=== PATIENT | male | born 1980 | race Two or more races ===

== ENCOUNTER 2024-08-14 21:41 | Emergency (ER) | payer MEDICAID, SELFPAY ==
[2024-08-14 21:42] VITALS: BMI 42.7
[2024-08-14 21:58] VITALS: BP 133/78; PULSE 112; RESP 18; TEMP 36.6; O2SAT 95
--- NOTE | 2024-08-14 22:18 | XR_ITS ---
Examination: Toes, right foot first digit 3 views Technique: Toes AP oblique lateral 3 views, right foot first digit Date and time of exam: August 14, 2024 1030 hrs. Indications: Injury to the foot today first digit pain Findings: No acute fracture No dislocation No foreign body Impression: No acute fracture
--- NOTE | 2024-08-14 22:19 | EDNOTE_ITS ---
Lower Extremity Injury RME/HPI General Chief Complaint: Ankle/Foot Injury Stated Complaint: R TOENAIL PAIN Time Seen by Provider: 08/14/24 21:50 Source: patient Arrival date/time: 08/14/24 21:41 44-year-old male presents emergency department complaining of stubbed right toe that occurred today. Mode of arrival: ambulatory Limitations: no limitations Related Data Previous Rx's ?Medication ?Instructions ?Recorded cephalexin 500 mg capsule 500 mg PO BID 7 days #14 caps 08/14/24 ibuprofen 600 mg tablet 600 mg PO Q8H PRN pain #20 tabs 08/14/24 Allergies Allergy/AdvReac Type Severity Reaction Status Date / Time No Known Allergies Allergy Verified 08/14/24 21:44 Review of Systems Review of Systems Systems Reviewed: All systems reviewed, normal except as documented Constitutional Constitutional: Reports system reviewed and no additional complaints, except as documented, Denies body ache(s), Denies chills and Denies fever(s) Eyes Eyes: Reports system reviewed and no additional complaints, except as documented and Denies change in vision ENT Ears, Nose, Mouth, and Throat: Reports system reviewed and no additional complaints, except as documented, Denies disequilibrium, Denies dizziness, Denies sore throat and Denies vertigo Cardiovascular Cardiovascular: Reports system reviewed and no additional complaints, except as documented, Denies chest pain and Denies dyspnea Respiratory Respiratory: Reports system reviewed and no additional complaints, except as documented, Denies chest congestion, Denies cough and Denies dyspnea Gastrointestinal Gastrointestinal: Reports system reviewed and no additional complaints, except as documented, Denies abdominal pain, Denies nausea and Denies vomiting Musculoskeletal Musculoskeletal: Reports system reviewed and no additional complaints, except as documented, Denies abnormal gait, Denies arthralgias and Reports other (Toe pain) Integumentary/Breasts Skin/Breast: Reports system reviewed and no additional complaints, except as documented, Denies erythema, Denies rash and Denies wounds Neurologic Neurologic: Reports system reviewed and no additional complaints, except as documented, Denies abnormal gait, Denies disequilibrium, Denies dizziness and Denies vertigo Past Medical History Past Medical History NEUROLOGIC: Positive Neurological Disorders and Migraine; Negative Seizures CARDIAC: Positive Hypercholesterolemia and Hypertension; Negative Cardiac Disorders, Myocardial Infarction or Congestive Heart Failure RESPIRATORY: Negative Chronic Obstructive Pulmonary Disease (COPD) or Asthma GASTROINTESTINAL: Positive Gastrointestinal Disorders, Gall Bladder Disease, Hemorrhoids and Obesity; Negative Gastrointestinal Bleed or Gastroesophageal Reflux Disease GENITOURINARY: Positive Genitourinary Disorders and Benign Prostatic Hyperplasia; Negative Renal Disease MUSCULOSKELETAL: Positive Musculoskeletal Disorders, Arthritis and Degenerative Disk Disease ENDOCRINE: Negative Endocrine Disorders, Diabetes Mellitus Type 1, Diabetes Mellitus Type 2, Hyperthyroidism or Hypothyroidism HEMATOLOGIC: Negative Blood Disorders or Sickle Cell Disease PSYCHO/SOCIAL: Positive Depression, Anxiety and Behavior Problems OTHER HISTORY: Negative Blood Transfusions, Blood Transfusion Reaction, Anesthesia Reactions, Chicken Pox, Measles, Mumps or Cancer Family History FAMILY HISTORY: Positive Family Cardiac Disorders Surgical History SURGICAL: Positive Nephrectomy (LEFT) Social History SMOKING STATUS: Never smoker SUBSTANCE USE: does not use ED Exam General Limitations: Present no limitations General appearance: Present alert and in no apparent distress Head Head exam: Present atraumatic Eye Eye exam: Present normal appearance, PERRL and EOMI ENT ENT exam: Present normal exam, normal oropharynx and mucous membranes moist Neck Neck exam: Present normal inspection, full ROM and trachea midline Chest Chest inspection: Present normal inspection and symmetric chest wall rise Respiratory Respiratory exam: Present normal lung sounds bilaterally Cardiovascular Cardiovascular exam: Present regular rate, normal rhythm and normal heart sounds Abdominal Exam Abdominal exam: Present soft and normal bowel sounds Extremities Exam Extremities exam: Present normal inspection and full ROM Expanded Lower Extremity Exam Top foot image: 2 1. Scant bleeding from under the toenail no avulsion of toenail Neurovascular/Tendon exam: Present normal capillary refill Gait: observed and limited by pain Back Exam Back exam: Present normal inspection and full ROM Neurological Exam Neurological exam: Present alert, oriented X3 and CN II-XII intact Psychiatric Psychiatric exam: Present normal affect and normal mood Skin Skin exam: Present warm, dry, intact and normal color Course Quality Measures none Orders Category Date Time Status XR toe RT min 2V Stat Exams 08/14/24 22:18 Completed HYDROcodone*/APAP 5/325 [[place] 5/325] Med 08/14/24 22:18 Discontinued 1 tab PO X1 ONE Vital Signs Vital signs: Vital Signs Temperature 97.8 F 08/14/24 21:58 Pulse Rate 112 H 08/14/24 21:58 Respiratory Rate 18 08/14/24 21:58 Blood Pressure 133/78 H 08/14/24 21:58 Pulse Oximetry (%) 95 08/14/24 21:58 Oxygen Delivery Method Room Air 08/14/24 21:58 95% room air within normal limits Extremity Injury, Lower MDM Narrative MDM Narrative:: 44-year-old male presents emergency department complaining of stubbed right toe that occurred today. X-ray of toe was unremarkable for any acute fracture. Right toenail does not appear to be avulsed but there is some scant amount of bleeding under the toenail from injury. Dressing applied and patient instructed to follow-up with primary care provider and request referral to graphotype operator if symptoms persist. Instructed to return to emergency department for any worsening symptoms or as needed. Patient data External records reviewed:: [facility] previous records Clinical information provided by:: patient Social determinants that could affect healthcare access:: none Patient has the following chronic illnesses:: See chart How is presenting disease/condition affected by chronic disease/condition?: u neffected by Evaluation data The following diagnostics were reviewed and interpreted by me:: radiology exam(s) Lab and/or radiology exams considered but not ordered:: Ordered Interpretation Summary: Interpreted by me Medications / Prescriptions Medications or Prescriptions considered but not ordered:: Ordered Medication administrations:: Medication Administration History Discontinued Medications Hydrocodone Bitart/Acetaminophen (Hydrocodone/Apap 5/325 Tablet) 1 tab PO X1 ONE Stop: 08/14/24 22:19 Last Admin: 08/14/24 22:22 Dose: 1 tab Documented By: RAYRAY Given Consultations Consultation(s) initiated? (list below): No Diagnosis Extremity Injury, Lower Differential Diagnosis: fracture of toe and other (Nail avulsion) Most likely diagnosis given after review of the tests above:: Contusion of great toe with damage to nail Admission Indicated Admission indicated?: not indicated Admission Request Was there a request for admission?: No Disposition Plan Disposition Plan: Discharge Discharge Attestation Discharge Attestation: The patient and all family members were given an opportunity to ask questions and understood the discharge instructions. Discharge instructions specifically effects, indications for sooner follow up or return to the emergency department, and the expected course of current diagnosis. Patient condition: Stable Discharge Plan Plan Patient Disposition: HOME (Self Care) Disposition Comment: Stable Prescriptions/Referrals Prescriptions/Med Rec: New cephalexin 500 mg capsule 500 mg PO BID 7 Days Qty: 14 0RF ibuprofen 600 mg tablet 600 mg PO Q8H PRN (Reason: pain) Qty: 20 0RF Problem List Clinical Impression: Contusion of great toe with damage to nail Patient/Caregiver Discharge Instructions Discharge Activity: activity as tolerated Education Materials: Bruises (Contusions), Understanding [id number] Nails Additional Instructions: Keep right great toe clean and dry with dressing on for the first 24 hours. Follow-up with primary care provider and request referral to graphotype operator if symptoms persist. Return to emergency department for any worsening symptoms or as needed. Print Language: Singaporean Stand Alone Forms: [employer] Award Info., Work/School Release, Patient Portal Info Letter PA/MANUAL LATHE MACHINIST Supervising Physician PA/MANUAL LATHE MACHINIST Supervising Physician: Dr. Grace
[2024-08-14] MEDS: HYDROcodone/APAP 5/325 TABLET 1 TAB PO (22:22)
== END 2024-08-15 | disposition home or self-care (01) ==
LOC: SERX 08-15 00:50
PROVIDERS: Emergency Provider Emergency Medicine; PCP Physician Assistant
DX: S90.21 Contusion of great toe with damage to nail (principal); W22.8XXA Striking against or struck by other objects, initial encounter
CPT/HCPCS: 73660; 99283; A9270

== ENCOUNTER 2025-02-15 17:58 | Emergency (ER) | payer MEDICAID, SELFPAY ==
[2025-02-15 17:59] VITALS: BMI 41.8
[2025-02-15 18:55] VITALS: BP 154/91; PULSE 95; RESP 18; TEMP 36.6; O2SAT 98
--- NOTE | 2025-02-15 19:08 | XR_ITS ---
Examination: Venous duplex lower extremity sonogram, bilateral. Date and time of exam: February 15, 2025 1937 hours INDICATIONS: Bilateral leg swelling and pain 2 weeks Technique: Multiple sonographic images of the deep venous system have been obtained. B-mode/2-D grayscale imaging of vascular structures and Doppler spectral analysis (waveforms) and color performed Both legs are examined. Findings: Deep venous systems do not demonstrate abnormal echogenicity. All visualized deep veins exhibit compressibility. All visualized deep veins exhibit augmentation. Impression: Negative for deep vein thrombosis
[2025-02-15] MEDS: HYDROcodone/APAP 5/325 TABLET 1 TAB PO (19:14)
[2025-02-15] MEDS: GABAPENTIN 300 MG CAPSULE PO (19:14)
--- NOTE | 2025-02-15 19:16 | EDNOTE_ITS ---
<Statement entered by Esperanza Tran MD - 02/16/25 18:29> As co-signing physician, I was present and available for consult prn. I concur with the plan and care as documented by the midlevel provider. ED Back Injury Pain RME/HPI General Chief Complaint: Back Pain/Injury Stated Complaint: WORSENING PAIN LOWER BACK DOWN TO FEET Time Seen by Provider: 02/15/25 19:07 Arrival date/time: 02/15/25 17:58 44M with no significant PMH presents to ED with several months of low back pain that radiates down to feet. There is intermittent numbness/burning sensation in legs. Patient has had XR/CT done. PCP only gave NSAIDs and sent patient to chiropractor. Limitations: no limitations Related Data Previous Rx's ?Medication ?Instructions ?Recorded ibuprofen 600 mg tablet 600 mg PO Q8H PRN pain #20 t abs 08/14/24 Allergies Allergy/AdvReac Type Severity Reaction Status Date / Time No Known Allergies Allergy Verified 02/15/25 18:02 Review of Systems Review of Systems Systems Reviewed: All systems reviewed, normal except as documented Constitutional Constitutional: Reports system reviewed and no additional complaints, except as documented, Denies fever(s) and Denies headache(s) ENT Ears, Nose, Mouth, and Throat: Denies disequilibrium and Denies headache(s) Cardiovascular Cardiovascular: Reports system reviewed and no additional complaints, except as documented, Denies chest pain and Denies dyspnea Respiratory Respiratory: Reports system reviewed and no additional complaints, except as documented, Denies cough and Denies dyspnea Gastrointestinal Gastrointestinal: Reports system reviewed and no additional complaints, except as documented, Denies abdominal pain, Denies nausea and Denies vomiting Musculoskeletal Musculoskeletal: Reports as per HPI, Reports back pain and Reports radiating pain into limb Neurologic Neurologic: Reports system reviewed and no additional complaints, except as documented, Denies confusion, Denies disequilibrium and Denies headache(s) Psychiatric Psychiatric: Denies confusion Past Medical History Past Medical History NEUROLOGIC: Positive Neurological Disorders and Migraine; Negative Seizures CARDIAC: Positive Hypercholesterolemia and Hypertension; Negative Cardiac Disorders, Myocardial Infarction or Congestive Heart Failure RESPIRATORY: Negative Chronic Obstructive Pulmonary Disease (COPD) or Asthma GASTROINTESTINAL: Positive Gastrointestinal Disorders, Gall Bladder Disease, Hemorrhoids and Obesity; Negative Gastrointestinal Bleed or Gastroesophageal Reflux Disease GENITOURINARY: Positive Genitourinary Disorders and Benign Prostatic Hyperplasia; Negative Renal Disease MUSCULOSKELETAL: Positive Musculoskeletal Disorders, Arthritis and Degenerative Disk Disease ENDOCRINE: Negative Endocrine Disorders, Diabetes Mellitus Type 1, Diabetes Mellitus Type 2, Hyperthyroidism or Hypothyroidism HEMATOLOGIC: Negative Blood Disorders or Sickle Cell Disease PSYCHO/SOCIAL: Positive Depression, Anxiety and Behavior Problems OTHER HISTORY: Negative Blood Transfusions, Blood Transfusion Reaction, Anesthesia Reactions, Chicken Pox, Measles, Mumps or Cancer Family History FAMILY HISTORY: Positive Family Cardiac Disorders Surgical History SURGICAL: Positive Nephrectomy (LEFT) Social History SMOKING STATUS: Current some day smoker SUBSTANCE USE: does not use ED Exam General Limitations: Present no limitations General appearance: Present alert and in no apparent distress Head Head exam: Present atraumatic Eye Eye exam: Present normal appearance, PERRL and EOMI ENT ENT exam: Present normal exam, normal oropharynx and mucous membranes moist Neck Neck exam: Present normal inspection, full ROM and trachea midline Chest Chest inspection: Present normal inspection and symmetric chest wall rise Respiratory Respiratory exam: Present normal lung sounds bilaterally Cardiovascular Cardiovascular exam: Present regular rate, normal rhythm and normal heart sounds Abdominal Exam Abdominal exam: Present soft and normal bowel sounds Extremities Exam Extremities exam: Present normal inspection and full ROM Back Exam Back exam: Present normal inspection and full ROM Neurological Exam Neurological exam: Present alert, oriented X3 and CN II-XII intact Psychiatric Psychiatric exam: Present normal affect and normal mood Skin Skin exam: Present warm, dry, intact and normal color Course Quality Measures none Orders Category Date Time Status US venous doppler LE BI Stat Exams 02/15/25 19:08 Completed Gabapentin [Neurontin] Med 02/15/25 19:08 Discontinued 300 mg PO X1 ONE HYDROcodone*/APAP 5/325 [[place] 5/325] Med 02/15/25 19:08 Discontinued 1 tab PO X1 ONE Vital Signs Vital signs: Vital Signs Temperature 98 F 02/15/25 18:55 Pulse Rate 95 02/15/25 18:55 Respiratory Rate 18 02/15/25 18:55 Blood Pressure 154/91 H 02/15/25 18:55 Pulse Oximetry (%) 98 02/15/25 18:55 Oxygen Delivery Method Room Air 02/15/25 18:55 O2 at 98% on RA and WNLs Back Pain / Injury MDM Narrative MDM Narrative:: 44M with no significant PMH presents to ED with several months of low back pain that radiates down to feet. There is intermittent numbness/burning sensation in legs. Patient has had XR/CT done. PCP only gave NSAIDs and sent patient to chiropractor. Physical exam reveals no obvious leg swelling. Gait normal. Patient is afebrile, calm, and alert. US neg. Likely sciatica. Patient data External records reviewed:: [facility] previous records Clinical information provided by:: patient Social determinants that could affect healthcare access:: none Patient has the following chronic illnesses:: none How is presenting disease/condition affected by chronic disease/condition?: no chronic disease Evaluation data The following diagnostics were reviewed and interpreted by me:: radiology exam(s) Lab and/or radiology exams considered but not ordered:: ordered Interpretation Summary: above Medications / Prescriptions Medications or Prescriptions considered but not ordered:: ordered Medication administrations:: Medication Administration History Discontinued Medications Hydrocodone Bitart/Acetaminophen (Hydrocodone/Apap 5/325 Tablet) 1 tab PO X1 ONE Stop: 02/15/25 19:09 Last Admin: 02/15/25 19:14 Dose: 1 tab Documented By: THIAGO Gabapentin (Gabapentin 300 Mg Capsule) 300 mg PO X1 ONE Stop: 02/15/25 19:09 Last Admin: 02/15/25 19:14 Dose: 300 mg Documented By: THIAGO above Consultations Consultation(s) initiated? (list below): No Diagnosis Differential diagnosis back pain/injury: lumbar radiculopathy, sciatica, strain of lumbar region, renal colic, pyelonephritis, thoracic back pain, AAA and discitis Most likely diagnosis given after review of the tests above:: sciatica Admission Indicated Admission indicated?: not indicated Admission Request Was there a request for admission?: No Disposition Plan Disposition Plan: Discharge Discharge Attestation Discharge Attestation: The patient and all family members were given an opportunity to ask questions and understood the discharge instructions. Discharge instructions specifically effects, indications for sooner follow up or return to the emergency department, and the expected course of current diagnosis. Patient condition: Stable Discharge Plan Plan Patient Disposition: HOME (Self Care) Discharge Disposition comment: Stable Prescriptions/Referrals Prescriptions/Med Rec: No Action ibuprofen 600 mg tablet 600 mg PO Q8H PRN (Reason: pain) Qty: 20 0RF Referrals: No Primary/Family,Physician [Primary Care Provider] - In 1 week Problem List Clinical Impression: Sciatica Patient/Caregiver Discharge Instructions Education Materials: ED Sciatica Additional Instructions: Please follow-up with PCP within 24-48 hours and return immediately if symptoms worsen. If problem persists, recommend outpatient PT and/or MRI follow-up. In the meantime, rest, use ice/heat, and/or compression. Print Language: Japanese Stand Alone Forms: Patient Portal Info Letter PA/MEDIA SALES REPRESENTATIVE Supervising Physician PA/MEDIA SALES REPRESENTATIVE Supervising Physician: Dr. Tran
== END 2025-02-15 21:29 | disposition home or self-care (01) ==
PROVIDERS: Emergency Provider Emergency Medicine
DX: M54.40 Lumbago with sciatica, unspecified side (principal)
CPT/HCPCS: 93970; 99284; A9270

== ENCOUNTER 2025-02-21 17:36 | Emergency (ER) | payer MEDICAID, SELFPAY ==
[2025-02-21 17:38] VITALS: BMI 40.6
[2025-02-21 17:49] VITALS: BP 145/104; PULSE 95; RESP 16; TEMP 37.4; O2SAT 97
--- NOTE | 2025-02-21 18:49 | PD.EDEYE ---
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 Patient just wants [place] and states this feels the same as previous flares. 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 He is going to see the eye doctor very soon and doesn't want any diagnostics. Patient denies vision changes and has stated he's been worked up for glaucoma and states he doesn't have that. Limitations: no limitations Related Data Previous Rx's ?Medication ?Instructions ?Recorded ibuprofen 600 mg tablet 600 mg PO Q8H PRN pain #20 tabs 08/14/24 hydrocodone 5 mg-acetaminophen 325 1 tab PO BID PRN pain #10 tabs 02/21/25 mg tablet Allergies Allergy/AdvReac Type Severity Reaction Status Date / Time No Known Allergies Allergy Verified 02/21/25 17:40 Review of Systems Review of Systems Systems Reviewed: All systems reviewed, normal except as documented Constitutional Constitutional: Reports system reviewed and no additional complaints, except as documented, Denies fever(s) and Denies headache(s) Eyes Eyes: Reports as per HPI and Reports eye pain ENT Ears, Nose, Mouth, and Throat: Denies disequilibrium and Denies headache(s) Cardiovascular Cardiovascular: Reports system reviewed and no additional complaints, except as documented, Denies chest pain and Denies dyspnea Respiratory Respiratory: Reports system reviewed and no additional complaints, except as documented, Denies cough and Denies dyspnea Gastrointestinal Gastrointestinal: Reports system reviewed and no additional complaints, except as documented, Denies abdominal pain, Denies nausea and Denies vomiting Neurologic Neurologic: Reports system reviewed and no additional complaints, except as documented, Denies confusion, Denies disequilibrium and Denies headache(s) Psychiatric Psychiatric: Denies confusion Past Medical History Past Medical History NEUROLOGIC: Positive Neurological Disorders and Migraine; Negative Seizures CARDIAC: Positive Hypercholesterolemia and Hypertension; Negative Cardiac Disorders, Myocardial Infarction or Congestive Heart Failure RESPIRATORY: Negative Chronic Obstructive Pulmonary Disease (COPD) or Asthma GASTROINTESTINAL: Positive Gastrointestinal Disorders, Gall Bladder Disease, Hemorrhoids and Obesity; Negative Gastrointestinal Bleed or Gastroesophageal Reflux Disease GENITOURINARY: Positive Genitourinary Disorders and Benign Prostatic Hyperplasia; Negative Renal Disease MUSCULOSKELETAL: Positive Musculoskeletal Disorders, Arthritis and Degenerative Disk Disease ENDOCRINE: Negative Endocrine Disorders, Diabetes Mellitus Type 1, Diabetes Mellitus Type 2, Hyperthyroidism or Hypothyroidism HEMATOLOGIC: Negative Blood Disorders or Sickle Cell Disease PSYCHO/SOCIAL: Positive Depression, Anxiety and Behavior Problems OTHER HISTORY: Negative Blood Transfusions, Blood Transfusion Reaction, Anesthesia Reactions, Chicken Pox, Measles, Mumps or Cancer Family History FAMILY HISTORY: Positive Family Cardiac Disorders Surgical History SURGICAL: Positive Nephrectomy (LEFT) Social History SMOKING STATUS: Former smoker SUBSTANCE USE: does not use ED Exam General Limitations: Present no limitations General appearance: Present alert and in no apparent distress Head Head exam: Present atraumatic Eye Eye exam: Present PERRL, EOMI and conjunctival injection (L) ENT ENT exam: Present normal exam, normal oropharynx and mucous membranes moist Neck Neck exam: Present normal inspection, full ROM and trachea midline Chest Chest inspection: Present normal inspection and symmetric chest wall rise Respiratory Respiratory exam: Present normal lung sounds bilaterally Cardiovascular Cardiovascular exam: Present regular rate, normal rhythm and normal heart sounds Abdominal Exam Abdominal exam: Present soft and normal bowel sounds Extremities Exam Extremities exam: Present normal inspection and full ROM Back Exam Back exam: Present normal inspection and full ROM Neurological Exam Neurological exam: Present alert, oriented X3 and CN II-XII intact Psychiatric Psychiatric exam: Present normal affect and normal mood Skin Skin exam: Present warm, dry, intact and normal color Course Quality Measures none Orders Category Date Time Status HYDROcodone*/APAP 5/325 [[place] 5/325] Med 02/21/25 18:42 Once 1 tab PO X1 ONE Vital Signs Vital signs: Vital Signs Temperature 99.4 F 02/21/25 17:49 Pulse Rate 95 02/21/25 17:49 Respiratory Rate 16 02/21/25 17:49 Blood Pressure 145/104 H 02/21/25 17:49 Pulse Oximetry (%) 97 02/21/25 17:49 Oxygen Delivery Method Room Air 02/21/25 17:49 O2 at 97% on RA and WNLs Eye MDM Narrative MDM Narrative:: 44M with no known PMH presents to ED with L eye arthritis, 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 Patient just wants [place] and states this feels the same as previous flares. 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 He is going to see the eye doctor very soon and doesn't want any diagnostics. Patient denies vision changes and has stated he's been worked up for glaucoma and states he doesn't have that. Physical exam reveals L eye conjunctivitis. No discharge. Normal pupil response and EOM. Patient is afebrile, calm, and alert. Unlikely eye arthritis, but more likely some form of ocular rosacea or manifestation of systemic autoimmune condition. Patient states he also has pending rheumtologist appt. Patient data External records reviewed:: [facility] previous records Clinical information provided by:: patient Social determinants that could affect healthcare access:: none Patient has the following chronic illnesses:: none How is presenting disease/condition affected by chronic disease/condition?: no chronic disease Evaluation data The following diagnostics were reviewed and interpreted by me:: other (specify) (none) Lab and/or radiology exams considered but not ordered:: not ordered Interpretation Summary: n/a Medications / Prescriptions Medications or Prescriptions considered but not ordered:: ordered Medication administrations:: Medication Administration History Hydrocodone Bitart/Acetaminophen (Hydrocodone/Apap 5/325 Tablet) 1 tab PO X1 ONE Stop: 02/21/25 18:43 above Consultations Consultation(s) initiated? (list below): No Diagnosis Eye Problem Differential Diagnosis: corneal abrasion, conjunctivitis, acute iritis, hyphema, periorbital cellulitis, subconjunctival hemorrhage, glaucoma, corneal ulcer and ruptured globe Most likely diagnosis given after review of the tests above:: conjunctivitis Admission Indicated Admission indicated?: not indicated Admission Request Was there a request for admission?: No Disposition Plan Disposition Plan: Discharge Discharge Attestation Discharge Attestation: The patient and all family members were given an opportunity to ask questions and understood the discharge instructions. Discharge instructions specifically effects, indications for sooner follow up or return to the emergency department, and the expected course of current diagnosis. Patient condition: Stable Discharge Plan Plan Patient Disposition: HOME (Self Care) Discharge Disposition comment: Stable Prescriptions/Referrals Prescriptions/Med Rec: New hydrocodone-acetaminophen 5-325 mg tablet 1 tab PO BID MDD 2 PRN (Reason: pain) Qty: 10 0RF No Action ibuprofen 600 mg tablet 600 mg PO Q8H PRN (Reason: pain) Qty: 20 0RF Referrals: Leatha Morgan PA-C [Primary Care Provider] - In 1 week Problem List Clinical Impression: Conjunctivitis associated with autoimmune skin disorder Patient/Caregiver Discharge Instructions Education Materials: ED Conjunctivitis, Nonspecific Additional Instructions: Please follow-up with PCP within 24-48 hours and return immediately if symptoms worsen. Mention this to scoreboard operator. Print Language: Kyrgyz Stand Alone Forms: Patient Portal Info Letter PA/ZAHRAA Supervising Physician JUANA/ZAHRAA Supervising Physician: Dr. Pastor
[2025-02-21] MEDS: HYDROcodone/APAP 5/325 TABLET 1 TAB PO (18:50)
== END 2025-02-21 18:51 | disposition home or self-care (01) ==
PROVIDERS: Emergency Provider Emergency Medicine; PCP Physician Assistant
DX: H10.9 Unspecified conjunctivitis (principal)
CPT/HCPCS: 99283; A9270

== ENCOUNTER 2025-03-08 00:37 | Emergency (ER) | payer MEDICAID, SELFPAY ==
[2025-03-08 00:38] VITALS: BP 142/96; PULSE 100; RESP 18; TEMP 36.9; O2SAT 97; BMI 43.4
--- NOTE | 2025-03-08 01:02 | XR_ITS ---
Examination: CT chest, without intravenous contrast. Sagittal and coronal 2-D reconstructions. Exam date and time: March 08, 2025, 0239 hours INDICATIONS: Patient fell today with injury to the right chest, right arm right rib and right chest pain CTDI:vol (mGy) 26.2 DLP: (mGycm) 1283 Technique: Multiple 3.0 mm axial sections of the chest to been obtained. Bone and lung density settings are obtained. Sagittal and coronal 2-D reconstructions have been obtained. Low dose protocols were performed. One or more of the following dose reduction techniques were used; automated exposure control, adjustment of the mA and/or KV according to patient size, use of iterative reconstruction technique. Findings: Thoracic aorta and pulmonary arteries appear intact on this noncontrast study No hemopericardium No pneumothorax pulmonary contusion or hemothorax Sternal segments thoracic vertebral bodies are intact Ribs appear intact No visualized liver or splenic lesion Absent gallbladder No pancreatic or adrenal mass Left kidney is not visualized IMPRESSION: The thoracic aorta pulmonary arteries intact. No hemopericardium, pneumothorax, pulmonary contusion or hemothorax Osseous structures appear intact
[2025-03-08] MEDS: HYDROcodone/APAP 5/325 TABLET 1 TAB PO (01:12)
[2025-03-08 03:50] VITALS: BP 136/84; PULSE 84; RESP 18; TEMP 36.7; O2SAT 95
--- NOTE | 2025-03-08 03:59 | PRELIM_ITS ---
CT scan of the chest without intravenous contrast (axial sections with sagittal and coronal reformats) March 08, 2025 0239 hours Clinical History: R-sided chest/rib pain; fall Compared with the prior study dated February Findings: The lungs are clear. There is no pneumothorax or pleural effusion. There is no pericardial effusion. No evidence of mediastinal hematoma on this noncontrast study. There is no fracture. The superficial soft tissues are unremarkable. Impression: No evidence of acute injury to the thorax. Report Electronically Signed By: Ralf Henderson 03/08/2025 3:59:27 AM [EST]
--- NOTE | 2025-03-08 05:51 | EDNOTE_ITS ---
ED Chest Pain RME/HPI General Chief Complaint: Fall Stated Complaint: FELL ON RIGHT SIDE Time Seen by Provider: 03/08/25 01:01 Arrival date/time: 03/08/25 00:37 45M with history of HTN presents to ED with R-sided CP after he tripped and fell. Patient denies hitting his head. Limitations: no limitations Related Data Previous Rx's ?Medication ?Instructions ?Recorded ibuprofen 600 mg tablet 600 mg PO Q8H PRN pain #20 t abs 08/14/24 hydrocodone 5 mg-acetaminophen 325 1 tab PO BID PRN pa in #10 tabs 02/21/25 mg tablet Allergies Allergy/AdvReac Type Severity Reaction Status Date / Time No Known Allergies Allergy Verified 03/08/25 00:38 Review of Systems Review of Systems Systems Reviewed: All systems reviewed, normal except as documented Constitutional Constitutional: Reports system reviewed and no additional complaints, except as documented, Denies fever(s) and Denies headache(s) ENT Ears, Nose, Mouth, and Throat: Denies disequilibrium and Denies headache(s) Cardiovascular Cardiovascular: Reports system reviewed and no additional complaints, except as documented, Reports as per HPI, Reports chest pain and Denies dyspnea Respiratory Respiratory: Reports system reviewed and no additional complaints, except as documented, Denies cough and Denies dyspnea Gastrointestinal Gastrointestinal: Reports system reviewed and no additional complaints, except as documented, Denies abdominal pain, Denies nausea and Denies vomiting Neurologic Neurologic: Reports system reviewed and no additional complaints, except as documented, Denies confusion, Denies disequilibrium and Denies headache(s) Psychiatric Psychiatric: Denies confusion Past Medical History Past Medical History NEUROLOGIC: Positive Neurological Disorders and Migraine; Negative Seizures CARDIAC: Positive Hypercholesterolemia and Hypertension; Negative Cardiac Disorders, Myocardial Infarction or Congestive Heart Failure RESPIRATORY: Negative Chronic Obstructive Pulmonary Disease (COPD) or Asthma GASTROINTESTINAL: Positive Gastrointestinal Disorders, Gall Bladder Disease, Hemorrhoids and Obesity; Negative Gastrointestinal Bleed or Gastroesophageal Reflux Disease GENITOURINARY: Positive Genitourinary Disorders and Benign Prostatic Hyperplasia; Negative Renal Disease MUSCULOSKELETAL: Positive Musculoskeletal Disorders, Arthritis and Degenerative Disk Disease ENDOCRINE: Negative Endocrine Disorders, Diabetes Mellitus Type 1, Diabetes Mellitus Type 2, Hyperthyroidism or Hypothyroidism HEMATOLOGIC: Negative Blood Disorders or Sickle Cell Disease PSYCHO/SOCIAL: Positive Depression, Anxiety and Behavior Problems OTHER HISTORY: Negative Blood Transfusions, Blood Transfusion Reaction, Anesthesia Reactions, Chicken Pox, Measles, Mumps or Cancer Family History FAMILY HISTORY: Positive Family Cardiac Disorders Surgical History SURGICAL: Positive Nephrectomy (LEFT) Social History SMOKING STATUS: Never smoker SUBSTANCE USE: does not use ED Exam General Limitations: Present no limitations General appearance: Present alert and in no apparent distress Head Head exam: Present atraumatic Eye Eye exam: Present normal appearance, PERRL and EOMI ENT ENT exam: Present normal exam, normal oropharynx and mucous membranes moist Neck Neck exam: Present normal inspection, full ROM and trachea midline Chest Chest inspection: Present symmetric chest wall rise and tenderness (R side) Respiratory Respiratory exam: Present normal lung sounds bilaterally Cardiovascular Cardiovascular exam: Present regular rate, normal rhythm and normal heart sounds Abdominal Exam Abdominal exam: Present soft and normal bowel sounds Extremities Exam Extremities exam: Present normal inspection and full ROM Back Exam Back exam: Present normal inspection and full ROM Neurological Exam Neurological exam: Present alert, oriented X3 and CN II-XII intact Psychiatric Psychiatric exam: Present normal affect and normal mood Skin Skin exam: Present warm, dry, intact and normal color Course Quality Measures none Orders Category Date Time Status CT chest wo con Stat Exams 03/08/25 01:02 Taken HYDROcodone*/APAP 5/325 [[place] 5/325] Med 03/08/25 01:02 Discontinued 1 tab PO X1 ONE Vital Signs Vital signs: Vital Signs Temperature 98.4 F 03/08/25 00:38 Pulse Rate 100 03/08/25 00:38 Respiratory Rate 18 03/08/25 00:38 Blood Pressure 142/96 H 03/08/25 00:38 Pulse Oximetry (%) 97 03/08/25 00:38 Oxygen Delivery Method Room Air 03/08/25 00:38 O2 at 97% on RA and WNLs Chest Pain MDM Narrative MDM Narrative:: 45M with history of HTN presents to ED with R-sided CP after he tripped and fe ll. Patient denies hitting his head. Physical exam reveals mild chest wall tenderness. Normal WOB. Patient is afebirle, calm, and alert. CT unremarkable. Patient data External records reviewed:: [facility] previous records Clinical information provided by:: patient Social determinants that could affect healthcare access:: none Patient has the following chronic illnesses:: HTN How is presenting disease/condition affected by chronic disease/condition?: uneffected by Evaluation data The following diagnostics were reviewed and interpreted by me:: radiology exam(s) Lab and/or radiology exams considered but not ordered:: ordered Interpretation Summary: above Medications / Prescriptions Medications or Prescriptions considered but not ordered:: ordered Medication administrations:: Medication Administration History Discontinued Medications Hydrocodone Bitart/Acetaminophen (Hydrocodone/Apap 5/325 Tablet) 1 tab PO X1 ONE Stop: 03/08/25 01:03 Last Admin: 03/08/25 01:12 Dose: 1 tab Documented By: SM above Consultations Consultation(s) initiated? (list below): No Diagnosis Chest Pain Differential Diagnosis: fracture of rib, pneumothorax, stable angina, unstable angina pectoris, atypical chest pain, st elevation myocardial infarction, costochondritis, chest pain, biliary colic and other (rib contusion) Most likely diagnosis given after review of the tests above:: rib contusion Admission Indicated Admission indicated?: not indicated Admission Request Was there a request for admission?: No Disposition Plan Disposition Plan: Discharge Discharge Attestation Discharge Attestation: The patient and all family members were given an opportunity to ask questions and understood the discharge instructions. Discharge instructions specifically effects, indications for sooner follow up or return to the emergency department, and the expected course of current diagnosis. Patient condition: Stable Discharge Plan Plan Patient Disposition: HOME (Self Care) Discharge Disposition comment: Stable Prescriptions/Referrals Prescriptions/Med Rec: No Action ibuprofen 600 mg tablet 600 mg PO Q8H PRN (Reason: pain) Qty: 20 0RF hydrocodone-acetaminophen 5-325 mg tablet 1 tab PO BID MDD 2 PRN (Reason: pain) Qty: 10 0RF Referrals: Leatha Morgan PA-C [Primary Care Provider] - In 1 week Problem List Clinical Impression: Contusion of rib Patient/Caregiver Discharge Instructions Education Materials: ED Contusion, Rib Additional Instructions: Please follow-up with PCP within 24-48 hours and return immediately if symptoms worsen. If problem persists, recommend outpatient PT and/or MRI follow-up. In the m eantime, rest, use ice/heat, and/or compression. Ibuprofen/Tylenol can be used simultaneously for greater fever/pain control. Print Language: Kinyarwanda Stand Alone Forms: Patient Portal Info Letter JUANA/ZAHRAA Supervising Physician SHERRELL Supervising Physician: Dr. Huang
== END 2025-03-08 04:03 | disposition home or self-care (01) ==
PROVIDERS: Emergency Provider Emergency Medicine; PCP Physician Assistant
DX: S20.211A Contusion of right front wall of thorax, initial encounter (principal); W01.0XXA Fall on same level from slipping, tripping and stumbling without subsequent striking against object, initial encounter; I10 Essential (primary) hypertension
CPT/HCPCS: 71250; 99284; A9270

== ENCOUNTER 2025-03-10 20:16 | Emergency (ER) | payer MEDICAID, SELFPAY ==
[2025-03-10 20:18] VITALS: BMI 43.4
[2025-03-10 20:29] VITALS: BP 157/99; PULSE 107; RESP 28; TEMP 37; O2SAT 96
--- NOTE | 2025-03-10 20:39 | EDNOTE_ITS ---
ED General RME/HPI General Chief complaint: General Adult/Misc Complain Stated complaint: DIFFICULTY BREATHING Time Seen by Provider: 03/10/25 20:20 Arrival date/time: 03/10/25 20:16 Related Data Previous Rx's ?Medication ?Instructions ?Recorded ibuprofen 600 mg tablet 600 mg PO Q8H PRN pain #20 t abs 08/14/24 hydrocodone 5 mg-acetaminophen 325 1 tab PO BID PRN pa in #10 tabs 02/21/25 mg tablet ketorolac 10 mg tablet 10 mg PO Q6H PRN pain #14 ta bs 03/10/25 Allergies Allergy/AdvReac Type Severity Reaction Status Date / Time No Known Allergies Allergy Verified 03/08/25 00:38 Review of Systems Review of Systems Systems Reviewed: All systems reviewed, normal except as documented ED Exam Narrative Physical exam: Physical Exam GENERAL: NAD, AAOx3 HEENT: Moist mucosa. Eyes open, symmetrical, & clear CARDIO: Heart RRR, no obvious murmurs PULM: No noted coughing/dyspnea CTA B/L, no R/W/R GI: Abdomen soft, nondistended, no pain on palpation. BSx4 SKIN/MSK/EXT: right sided chest walll tenderness to palpation, no pain on palpation. Pedal pulses present B/L NEURO: AAOx3, no focal neuro deficits, able to move all 4 extremities Course Quality Measures none Orders Category Date Time Status CXRP [XR chest 1V portable] Stat Exams 03/10/25 20:40 Completed Ketorolac Inj [Toradol Inj] Med 03/10/25 20:40 Discontinued 30 mg IM X1 ONE Vital Signs Vital signs: Vital Signs Temperature 98.6 F 03/10/25 20:29 Pulse Rate 107 H 03/10/25 20:29 Respiratory Rate 28 H 03/10/25 20:29 Blood Pressure 157/99 H 03/10/25 20:29 Pulse Oximetry (%) 96 03/10/25 20:29 Oxygen Delivery Method Room Air 03/10/25 20:29 Discharge Plan Plan Patient Disposition: HOME (Self Care) Prescriptions/Referrals Prescriptions/Med Rec: New ketorolac 10 mg tablet 10 mg PO Q6H PRN (Reason: pain) Qty: 14 0RF Rx Instructions: maximum total duration of 5 days from all oral, intranasal, or parenteral formulations No Action ibuprofen 600 mg tablet 600 mg PO Q8H PRN (Reason: pain) Qty: 20 0RF hydrocodone-acetaminophen 5-325 mg tablet 1 tab PO BID MDD 2 PRN (Reason: pain) Qty: 10 0RF Referrals: No Primary/Family,Physician [Primary Care Provider] - In 1 week Problem List Clinical Impression: Contusion of rib Patient/Caregiver Discharge Instructions Additional Instructions: Follow up with your primary care physician within 1 week of discharge. You have been prescribed toradol for pain do not exceed 4 tablets in a day. Should any symptoms recur or worsen patient is instructed to return to the ED. Print Language: Hungarian Stand Alone Forms: [employer] Award Info., Patient Portal Info Letter MDM Narrative [facility] hospital course: 45 y/o M who came to the Ed due to right sided chest pain after falling on a t ree stump. Patient came to the ED on wednesday had imaging done which was negative and was discharged. However pain continued now with shortness of breath and decided to come back. 2054: CXR ordered, toradol 30mg IM ordered 2112: XR shows no acute injury to the chest wall 2134 Symptoms have resolved patient can be safely discharged, medications sent to pharmacy Clinical Information Provided by patient Medical Records Reviewed [facility] Chronic Illness/Social Conditions which may negatively complicate care or outcome(s)-explain: None or not applicable Lab Interpretation Labs: none Imaging Imaging interpretation: none Radiology reports / interpretation(s): see radiology report Medication Administration(s) Medication Administration History Discontinued Medications Ketorolac Tromethamine (Ketorolac Inj 60 Mg/2 Ml Vial) 30 mg IM X1 ONE Stop: 03/10/25 20:41 Last Admin: 03/10/25 20:53 Dose: 30 mg Documented By: CHRIS see above
--- NOTE | 2025-03-10 20:40 | XR_ITS ---
Examination: AP chest single view TECHNIQUE: Upright PA chest single view Date and time: March 10, 2025, 2046 hours INDICATIONS: Shortness of breath chest pain beginning today. FINDINGS: No significant cardiac enlargement Accentuation basilar bronchovascular markings. No lobar pneumonia. No pulmonary edema. IMPRESSION: Basilar bronchitis pattern
[2025-03-10] MEDS: KETOROLAC INJ 60 MG/2 ML VIAL 30 MG IM (20:53)
--- NOTE | 2025-03-10 21:21 | PC.NURSE ---
DR NG CALLED PT NA AT THIS TIME
== END 2025-03-10 21:57 | disposition home or self-care (01) ==
PROVIDERS: Emergency Provider Emergency Medicine
DX: S20.219A Contusion of unspecified front wall of thorax, initial encounter (principal); R06.02 Shortness of breath; R07.9 Chest pain, unspecified; X58.XXXA Exposure to other specified factors, initial encounter
CPT/HCPCS: 71045; 96372; 99283; J1885

== ENCOUNTER 2025-05-12 20:02 | Emergency (ER) | payer MEDICAID, SELFPAY ==
[2025-05-12 20:04] VITALS: BMI 40.6
[2025-05-12 20:54] VITALS: BP 148/95; PULSE 85; RESP 18; TEMP 37.1; O2SAT 98
--- NOTE | 2025-05-12 21:03 | PD.EDADULT ---
ED General RME/HPI General Chief complaint: General Adult/Misc Complain Stated complaint: RIGHT EYE PAIN, PEREZ Time Seen by Provider: 05/12/25 20:29 Arrival date/time: 05/12/25 20:02 This is a case of a 45-year-old male with history of iritis with regular follow-up with division plant engineer came in in the emergency room due to medication refill patient states that he is only here for medication refill of [place] and eyedrops that was given to him last April for his eye pain and headache patient denies any injury or trauma denies any blurring of vision denies any numbness weakness tingling sensation denies photophobia denies any injury or trauma Limitations: no limitations Related Data Previous Rx's ?Medication ?Instructions ?Recorded ibuprofen 600 mg tablet 600 mg PO Q8H PRN pain #20 tabs 08/14/24 hydrocodone 5 mg-acetaminophen 325 1 tab PO BID PRN pain #10 tabs 02/21/25 mg tablet ketorolac 10 mg tablet 10 mg PO Q6H PRN pain #14 tabs 03/10/25 hydrocodone 5 mg-acetaminophen 325 1 tab PO Q6H PRN pain #10 tabs 05/12/25 mg tablet ofloxacin 0.3 % eye drops 1 drp ophthalmic (eye) QID #5 mL 05/12/25 Allergies Allergy/AdvReac Type Severity Reaction Status Date / Time No Known Allergies Allergy Verified 05/12/25 20:04 Review of Systems Constitutional Constitutional: Reports system reviewed and no additional complaints, except as documented, Reports as per HPI, Denies frequent falls, Reports headache(s) and Denies weakness Eyes Eyes: Reports system reviewed and no additional complaints, except as documented, Reports as per HPI, Denies blind spots, Denies blurry vision, Denies change in vision, Denies decreased night vision, Denies diplopia, Denies eye discharge, Denies dry eyes, Denies exophthalmos, Denies floaters, Denies irritation, Denies itchy eyes, Denies loss of peripheral vision, Denies loss of vision, Denies other visual disturbances, Reports eye pain, Denies photophobia, Denies requires corrective lenses, Denies seeing flashes, Denies spots in vision and Denies tunnel vision ENT Ears, Nose, Mouth, and Throat: Reports system reviewed and no additional complaints, except as documented, Reports as per HPI, Denies abnormal hearing, Denies disequilibrium, Denies dizziness, Reports headache(s) and Denies vertigo Cardiovascular Cardiovascular: Reports system reviewed and no additional complaints, except as documented, Reports as per HPI and Denies syncope Respiratory Respiratory: Reports system reviewed and no additional complaints, except as documented and Reports as per HPI Gastrointestinal Gastrointestinal: Reports system reviewed and no additional complaints, except as documented and Reports as per HPI Musculoskeletal Musculoskeletal: Denies abnormal gait, Denies numbness and Denies tingling Neurologic Neurologic: Reports system reviewed and no additional complaints, except as documented, Reports as per HPI, Denies abnormal gait, Denies abnormal hearing, Denies abnormal movements, Denies abnormal speech, Denies behavioral changes, Denies burning sensations, Denies confusion, Denies convulsions, Denies disequilibrium, Denies dizziness, Denies localized weakness, Denies frequent falls, Reports headache(s), Denies lack of coordination, Denies loss of vision, Denies memory loss, Denies numbness, Denies other visual disturbances, Denies paresthesias, Denies radicular pain, Denies restless legs, Denies seizure-like activity, Denies sensory deficit, Denies syncope, Denies tingling, Denies tremor(s), Denies vertigo and Denies weakness Psychiatric Psychiatric: Denies behavioral changes, Denies confusion and Denies memory loss Allergic/Immunologic Allergic/Immunologic: Denies itchy eyes Past Medical History Past Medical History NEUROLOGIC: Positive Neurological Disorders and Migraine; Negative Seizures CARDIAC: Positive Hypercholesterolemia and Hypertension; Negative Cardiac Disorders, Myocardial Infarction or Congestive Heart Failure RESPIRATORY: Negative Chronic Obstructive Pulmonary Disease (COPD) or Asthma GASTROINTESTINAL: Positive Gastrointestinal Disorders, Gall Bladder Disease, Hemorrhoids and Obesity; Negative Gastrointestinal Bleed or Gastroesophageal Reflux Disease GENITOURINARY: Positive Genitourinary Disorders and Benign Prostatic Hyperplasia; Negative Renal Disease MUSCULOSKELETAL: Positive Musculoskeletal Disorders, Arthritis and Degenerative Disk Disease ENDOCRINE: Negative Endocrine Disorders, Diabetes Mellitus Type 1, Diabetes Mellitus Type 2, Hyperthyroidism or Hypothyroidism HEMATOLOGIC: Negative Blood Disorders or Sickle Cell Disease PSYCHO/SOCIAL: Positive Depression, Anxiety and Behavior Problems OTHER HISTORY: Negative Blood Transfusions, Blood Transfusion Reaction, Anesthesia Reactions, Chicken Pox, Measles, Mumps or Cancer Family History FAMILY HISTORY: Positive Family Cardiac Disorders Surgical History SURGICAL: Positive Nephrectomy (LEFT) Social History SMOKING STATUS: Never smoker SUBSTANCE USE: does not use ED Exam General Limitations: Present no limitations General appearance: Present alert, in no apparent distress and other (Patient is awake alert oriented not in distress nontoxic looking well-hydrated well-nourished) Head Head exam: Present atraumatic, normocephalic and normal inspection Eye Eye exam: Present normal appearance, PERRL, EOMI and other (Patient left eye exam were normal PERRL on both eyes EOM intact no conjunctival redness or subconjunctival hemorrhage no discharge no increasing tearing no palpable edema no hematoma no foreign body both periorbital were normal both eyelids were also normal) ENT ENT exam: Present normal exam, normal oropharynx, mucous membranes moist and other (Normal HEENT exam) Neck Neck exam: Present normal inspection, full ROM and trachea midline; Absent tenderness, meningismus, lymphadenopathy or thyromegaly Chest Chest inspection: Present normal inspection and symmetric chest wall rise; Absent tenderness Respiratory Respiratory exam: Present normal lung sounds bilaterally; Absent respiratory distress, wheezes, stridor, accessory muscle use or prolonged expiratory phase Cardiovascular Cardiovascular exam: Present regular rate, normal rhythm and normal heart sounds Abdominal Exam Abdominal exam: Present soft and normal bowel sounds Extremities Exam Extremities exam: Present normal inspection and full ROM Back Exam Back exam: Present normal inspection and full ROM Neurological Exam Neurological exam: Present alert, oriented X3, CN II-XII intact, normal gait, reflexes normal and other (Awake alert oriented x 4 no focal deficit GCS 15/15 steady gait no slurring of speech no facial droop memory intact CN II to XII is normal negative Babinski motor or sensory reflex are all normal in all extremities); Absent motor sensory deficit Psychiatric Psychiatric exam: Present normal affect and normal mood Skin Skin exam: Present warm, dry, intact and normal color Course Quality Measures none Orders Category Date Time Status HYDROcodone*/APAP 5/325 [[place] 5/325] Med 05/12/25 20:58 Discontinued 1 tab PO X1 ONE Vital Signs Vital signs: Vital Signs Temperature 98.7 F 05/12/25 20:54 Pulse Rate 85 05/12/25 20:54 Respiratory Rate 18 05/12/25 20:54 Blood Pressure 148/95 H 05/12/25 20:54 Pulse Oximetry (%) 98 05/12/25 20:54 Oxygen Delivery Method Room Air 05/12/25 20:54 Vital signs were normal not tachycardic not tachypneic BP stable not hypoxic oxygen saturation is 98% in room air Discharge Plan Plan Patient Disposition: Left without Medical Screening Patient condition on transfer: Stable Prescriptions/Referrals Prescriptions/Med Rec: New hydrocodone-acetaminophen 5-325 mg tablet 1 tab PO Q6H MDD max 4 tabs per day PRN (Reason: pain) Qty: 10 0RF ofloxacin 0.3 % drops 1 drp ophthalmic (eye) QID Qty: 5 0RF No Action ibuprofen 600 mg tablet 600 mg PO Q8H PRN (Reason: pain) Qty: 20 0RF ketorolac 10 mg tablet 10 mg PO Q6H PRN (Reason: pain) Qty: 14 0RF Rx Instructions: maximum total duration of 5 days from all oral, intranasal, or parenteral formulations hydrocodone-acetaminophen 5-325 mg tablet 1 tab PO BID MDD 2 PRN (Reason: pain) Qty: 10 0RF Problem List Clinical Impression: Medication refill, Headache, History of iritis Patient/Caregiver Discharge Instructions Education Materials: Self-Care for Headaches, ED Iritis Additional Instructions: Follow-up with your primary care physician in 2 days for reevaluation return to the emergency room immediately or call 911 for worsening symptoms or any emergent concerns such as headache nausea vomiting dizziness blurring of vision numbness weakness tingling sensation call 911 or go to the nearest emergency room continue to see your division plant engineer as scheduled for reevaluation of your iritis take your medication as directed Print Language: Citizen Of [place] 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 Wright [facility] Narrative MDM hospital course: This is a case of a 45-year-old male with history of iritis with regular follow-up with division plant engineer came in in the emergency room due to medication refill patient states that he is only here for medication refill of [place] and eyedrops that was given to him last April for his eye pain and headache patient denies any injury or trauma denies any blurring of vision denies any numbness weakness tingling sensation denies photophobia denies any injury or trauma physical examination patient is awake alert oriented not in distress nontoxic looking well-hydrated well-nourished patient refused eye exam ( wood Lamp) patient stated that he only wants medication refill of [place] and eyedrops no injury no trauma PERRLA EOM intact normal conjunctiva no papilledema no hyphema no conjunctival redness or hemorrhage no increase in tearing the rest of the HEENT and eye exam are normal patient neurological exam is also normal awake alert oriented x 4 no focal deficit GCS 15/15 steady gait patient was prescribed with [place] for pain and ofloxacin for eyedrops he stated that he will see division plant engineer this week for reevaluation of his iritis he was advised to follow-up also with PCP in 2 days for reevaluation and for any worsening symptoms or any emergent concern he will return the emergency room immediately or call 911 Clinical Information Provided by none other: None Medical Records Reviewed None Meds/Rx Considered, not Ordered None (Given) Describe details: Given Labs/Rad/Tests considered, not Ordered None Chronic Illness/Social Conditions Add or document further as needed: None EKG EKG not done Lab Interpretation Labs: none Imaging Imaging interpretation: none Medication Administration(s) none Medication Administration History Discontinued Medications Hydrocodone Bitart/Acetaminophen (Hydrocodone/Apap 5/325 Tablet) 1 tab PO X1 ONE Stop: 05/12/25 20:59 Given Diagnosis Differential diagnosis: Medication refill Differential dx and/or dx ruled out: Medication refill Most likely dx, and/or detailed dx discussion: Medication refill Dispositon Disposition: Discharge Home
[2025-05-12] MEDS: HYDROcodone/APAP 5/325 TABLET 1 TAB PO (21:07)
== END 2025-05-12 21:18 | disposition home or self-care (01) ==
LOC: SERX 21:18
PROVIDERS: Emergency Provider Emergency Medicine; PCP Physician Assistant
DX: R51.9 Headache, unspecified (principal); Z76.0 Encounter for issue of repeat prescription; Z86.69 Personal history of other diseases of the nervous system and sense organs
CPT/HCPCS: 99283; A9270